=== PATIENT | male | born 1960 | race Caucasian/White ===

== ENCOUNTER → 2016-05-22 | Outpatient (CLI) | payer MEDICARE, BC ==
[~2016-05-22] MED LIST: ASPI-557 PO; DESV100T PO; FENO145T PO; FLUT16SP EA NOSTRIL; HYDR-3989 PO; ISOS30TA53 PO; LOSA1TAB96 PO; METO25TA6 PO; NITR0.4T SL; OMEG1CAP79 PO; POTA10CA37 PO; PRAV80TA23 PO; TICA60TA PO
--- NOTE | 2016-05-22 13:16 | DI ---
Indication: ITS.REASON: R10.11 RUQ PAIN PROCEDURE: CT ABD/PELVIS W/O CONTRAST: Encounter: Initial Comparison: Gallbladder ultrasound dated December 01, 2015 Technique: Axial CT images were performed through the abdomen and pelvis without intravenous contrast. Coronal and sagittal two-dimensional reformats. Automated Exposure Control and Iterative Reconstruction dose reducing techniques were utilized. Findings: The lung bases are clear. Liver is diffusely decreased in attenuation consistent with fatty infiltration. No contour deforming liver masses. The gallbladder, spleen, pancreas, adrenal glands and kidneys are within normal limits. No renal or ureteral stones. No abdominal or pelvic lymphadenopathy. Small fat-containing left inguinal hernia. Mild atherosclerotic plaque in the abdominal aorta. Bladder is normal. Prostate and rectum are unremarkable. No free fluid or evidence of a bowel obstruction. No significant diverticulosis or acute diverticulitis. The appendix is normal. Bone windows are unremarkable for age. Impression: No acute disease process seen. Hepatic steatosis. .
== END ==
LOC: IMA 12:31
PROVIDERS: ATTEND Internal Medicine
DX: K76.0 Fatty (change of) liver, not elsewhere classified (principal); R10.11 Right upper quadrant pain

== ENCOUNTER → 2016-06-05 | Outpatient (CLI) | payer MEDICARE, BC ==
--- NOTE | 2016-06-05 15:07 | DI ---
Indication: ITS.REASON: J32.9 CHRONIC SINUSITIS PROCEDURE: CT SINUSES W/O CONTRAST: Encounter: Initial Comparison: Sinus CT dated March 12, 2014 Technique: Axial CT images were performed through the sinuses without intravenous contrast. Coronal and sagittal two-dimensional reformats. Automated Exposure Control and Iterative Reconstruction dose reducing techniques were utilized. Findings: There is continued near complete opacification of the left maxillary sinus with some bony thickening and a small air-fluid level. The right maxillary sinus shows only minimal mucosal thickening currently. Aeration of the ethmoid air cells has improved with moderate to severe mucosal thickening remaining in the right anterior ethmoids and frontoethmoidal recess. Mild mucosal thickening in the right frontal sinus is similar to the comparison. Aeration of the left frontal sinus has improved with mild mucosal thickening currently. Mild mucosal thickening in the left frontoethmoidal recess and ethmoid air cells. Mild mucosal thickening in the bilateral middle ethmoids. The posterior ethmoid air cells are clear. The sphenoid sinuses are clear. The right sphenoid ostium is narrowed by mucosal thickening. Left sphenoid ostium is patent. The visualized mastoid air cells are clear. The right ostiomeatal unit is patent. Left ostiomeatal unit is occluded by mucosal thickening. No significant nasal septal deviation or spurring. Impression: Improving aeration of the sinuses with acute on chronic left maxillary sinusitis and residual frontoethmoidal mucosal disease. .
== END ==
LOC: IMA 14:25
PROVIDERS: ATTEND Otolaryngology
DX: J01.00 Acute maxillary sinusitis, unspecified (principal); J34.89 Other specified disorders of nose and nasal sinuses